=== PATIENT | female | born 1965 | race Caucasian/White ===

== ENCOUNTER 2020-02-10 12:24 | Inpatient (IN) ==
[2020-02-10 14:37] LABS: Basophils % 0.6 % (0.0-0.8); Eosinophils # 0.2 10*3/uL (0.0-0.87); Eosinophils % 2.3 % (0.00-10.9); Hematocrit 38.5 VOL% (35.7-47.0); Immature Granulocytes % 0.6 %; Immature Granulocytes Absolute 0.04 #; Lymphocytes # 1.7 10*3/uL (1.4-4.0); Lymphocytes % 25.8 % (21.3-54.2); Mean Corpuscular HGB Conc 33.8 GM/DL (32-36); Mean Corpuscular Volume 86.3 FL (87-102); Mean Platelet Volume 12.4 FL (9.6-12.0); Monocytes % 6.8 % (1.7-12.7); Neutrophils % 63.9 % (38.7-73.9); Platelet Count 161 T/CUMM (130-400); Red Blood Count 4.46 MC/CUMM (3.8-5.5); Red Cell Distribution Width 13.4 % (9.3-17.3); White Blood Count 6.6 T/CUMM (4-12)
[2020-02-10 14:51] LABS: Albumin 3.6 G/DL (3.4-5.0); Bilirubin,Total 0.4 MG/DL (0.2-1.0); Calcium 9.3 MG/DL (8.5-10.1); Osmolality,Calculated 282.1 MOS/KG (273-304); Total Protein 7.3 G/DL (6.4-8.3)
[2020-02-10] MEDS ORDERED: ZALEPLON 5 MG CAPSULE PO PRN (15:34)
[2020-02-10] MEDS ORDERED: ACETAMINOPHEN 325 MG TABLET PO PRN (15:34)
[2020-02-10] MEDS ORDERED: SIMETHICONE CHEW 125 MG TABLET PO PRN (15:34)
[2020-02-10] MEDS ORDERED: LACTULOSE 20 GM/30 ML UDCUP PO PRN (15:34)
[2020-02-10] MEDS ORDERED: MAGNESIUM SULF RIDER 2 GM in PREMIX 1 EACH IV PRN (15:34)
[2020-02-10] MEDS ORDERED: ALUMINUM/MAGNES/SIMETH MAX STR 30 ML UDCUP PO PRN (15:34)
[2020-02-10] MEDS ORDERED: CALCIUM CARBONATE CHEW 500 MG TABLET PO PRN (15:34)
[2020-02-10] MEDS ORDERED: diphenhydrAMINE CAP 25 MG CAPSULE PO PRN (15:34)
[2020-02-10] MEDS ORDERED: hydrALAZINE 20 MG/1 ML VIAL IV PRN (15:34)
[2020-02-10] MEDS ORDERED: POTASSIUM CHLORIDE 20 MEQ TABLET PO PRN (15:34)
[2020-02-10] MEDS ORDERED: MORPHINE 4 MG/1 ML VIAL IV PRN (15:34)
[2020-02-10] MEDS ORDERED: BISACODYL 5 MG TABLET PO PRN (15:34)
[2020-02-10] MEDS ORDERED: MAGNESIUM SULF RIDER 4 GM in PREMIX 1 EACH IV PRN (15:34)
[2020-02-10] MEDS ORDERED: ATROPINE 1 MG/10 ML SYRINGE IV PRN (15:56)
[2020-02-10] MEDS ORDERED: ENOXAPARIN 40 MG/0.4 ML SYRINGE SUBCUT SCH (16:00)
[2020-02-10 17:55] LABS: Troponin I 0.041 NG/ML (0.00-0.045)
[2020-02-10 20:53] LABS: Troponin I 0.038 NG/ML (0.00-0.045)
[2020-02-10] MEDS: GABAPENTIN 100 MG CAPSULE PO SCH (21:44)
[2020-02-11] MEDS: LEVOTHYROXINE 137 MCG TABLET PO SCH (05:34)
[2020-02-11 05:47] LABS: Basophils % 0.5 % (0.0-0.8); Eosinophils # 0.2 10*3/uL (0.0-0.87); Eosinophils % 2.4 % (0.00-10.9); Hematocrit 36.3 VOL% (35.7-47.0); Hemoglobin 12.4 GM/DL (12.0-16.0); Immature Granulocytes % 0.5 %; Immature Granulocytes Absolute 0.03 #; Lymphocytes # 2.2 10*3/uL (1.4-4.0); Lymphocytes % 34.9 % (21.3-54.2); Mean Corpuscular HGB Conc 34.2 GM/DL (32-36); Mean Corpuscular Volume 86.6 FL (87-102); Monocytes % 7.4 % (1.7-12.7); Neutrophils % 54.3 % (38.7-73.9); Platelet Count 140 T/CUMM (130-400); Red Blood Count 4.19 MC/CUMM (3.8-5.5); Red Cell Distribution Width 13.3 % (9.3-17.3); White Blood Count 6.2 T/CUMM (4-12)
[2020-02-11 06:20] LABS: Calcium 8.7 MG/DL (8.5-10.1); Osmolality,Calculated 279.3 MOS/KG (273-304); Thyroid Stimulating Hormone 4.78 uIU/ml (0.358-3.74)
[2020-02-11] MEDS ORDERED: SODIUM CHLORIDE 0.9% 1,000 ML IV SCH (07:00)
[2020-02-11] MEDS ORDERED: ceFAZolin 1,000 MG in SYRINGE 1 EACH IV ONE (08:00)
[2020-02-11] MEDS ORDERED: diphenhydrAMINE CAP 25 MG CAPSULE PO ONE (08:00)
[2020-02-11] MEDS ORDERED: DIAZEPAM 5 MG TABLET PO ONE (08:00)
[2020-02-11] MEDS ORDERED: ceFAZolin 1,000 MG VIAL IRRIG ONE (08:00)
[2020-02-11] MEDS ORDERED: MIDAZOLAM 2 MG/2 ML VIAL ONE ×3 (09:07→10:17)
[2020-02-11] MEDS ORDERED: TISSUE ADHESIVE 1 EACH APPLICATOR TOP ONE (09:07)
[2020-02-11] MEDS ORDERED: ceFAZolin 1,000 MG VIAL ONE (09:07)
[2020-02-11] MEDS ORDERED: LIDOCAINE 1% 20 ML VIAL ONE (09:07)
[2020-02-11] MEDS ORDERED: fentaNYL 100 MCG/2 ML VIAL ONE ×2 (09:07→10:05)
[2020-02-11] MEDS ORDERED: PROMETHAZINE 25 MG/1 ML VIAL ONE (10:07)
[2020-02-11] MEDS ORDERED: AMIODARONE 150 MG/3 ML VIAL ONE (10:08)
[2020-02-11] MEDS: GABAPENTIN 100 MG CAPSULE PO SCH ×3 (13:36→20:44)
[2020-02-11] MEDS: PANTOPRAZOLE 40 MG TABLET PO SCH (13:54)
[2020-02-11] MEDS: VENLAFAXINE 37.5 MG TABLET PO SCH (13:54)
[2020-02-11] MEDS: ONDANSETRON 4 MG/2 ML VIAL IV PRN ×2 (15:30→19:04)
[2020-02-12 05:32] LABS: Basophils % 0.5 % (0.0-0.8); Eosinophils # 0.1 10*3/uL (0.0-0.87); Eosinophils % 1.5 % (0.00-10.9); Hematocrit 40.4 VOL% (35.7-47.0); Hemoglobin 13.8 GM/DL (12.0-16.0); Immature Granulocytes % 0.5 %; Immature Granulocytes Absolute 0.04 #; Lymphocytes # 1.4 10*3/uL (1.4-4.0); Lymphocytes % 19.1 % (21.3-54.2); Mean Corpuscular HGB Conc 34.2 GM/DL (32-36); Mean Corpuscular Volume 86.1 FL (87-102); Monocytes % 7.8 % (1.7-12.7); Neutrophils % 70.6 % (38.7-73.9); Platelet Count 158 T/CUMM (130-400); Red Blood Count 4.69 MC/CUMM (3.8-5.5); Red Cell Distribution Width 13.3 % (9.3-17.3); White Blood Count 7.5 T/CUMM (4-12)
[2020-02-12 05:57] LABS: Calcium 8.9 MG/DL (8.5-10.1); Osmolality,Calculated 277.4 MOS/KG (273-304)
[2020-02-12] MEDS: LEVOTHYROXINE 137 MCG TABLET PO SCH (06:20)
[2020-02-12] MEDS: GABAPENTIN 100 MG CAPSULE PO SCH (09:22)
[2020-02-12] MEDS: PANTOPRAZOLE 40 MG TABLET PO SCH (09:22)
[2020-02-12] MEDS: VENLAFAXINE 37.5 MG TABLET PO SCH (09:22)
[2020-02-12 11:31] VITALS: BP 122/76
== END 2020-02-12 12:36 | disposition home or self-care (01) | DRG 243 ==
LOC: N.ED 12:24 → N.EDINP 15:34 → N.TELES 16:19
PROVIDERS: ADMIT Internal Medicine Cardiovascular Disease; ATTEND Internal Medicine Cardiovascular Disease